=== PATIENT | male | born 1955 | race American Indian/Alaskan Native ===

== ENCOUNTER 2020-10-18 05:40 | Inpatient (IN) | payer MEDICARE, OTHER ==
[2020-10-18 07:34] LABS: BASO % 0.9 % (0-2.0); EOS % 0.1 % (0-4.5); HEMATOCRIT 31.5 % (35.4-49); HEMOGLOBIN 10.2 GM/dL (11.7-16.9); LYMPH % 20.5 % (8-40); MCH 26.7 pg (25.7-33.7); MCHC 32.6 g/dl (32.0-35.9); MEAN CELL VOLUME 81.9 fl (80-96); MEAN PLT VOLUME 8.1 fl (7.5-11.1); MONO % 22.9 % (3.8-10.2); NEUT % 55.6 % (42.8-82.8); PLATELET COUNT 70 10^3/uL (134-434); RBC 3.84 M/mm3 (4.00-5.60); RDW 14.3 % (11.9-15.9); WHITE BLOOD COUNT 4.7 K/mm3 (4.0-10.0)
[2020-10-18 07:42] LABS: INR 1.24 (0.83-1.09); PROTHROMBIN TIME (PATIENT) 15.1 SEC (9.7-13.0)
[2020-10-18 07:50] LABS: CHLORIDE 103 mmol/L (98-107); SODIUM 133 mmol/L (136-145)
[2020-10-18 07:52] LABS: ALBUMIN 3.3 g/dl (3.4-5.0); ANION GAP 7 MMOL/L (8-16); BLOOD UREA NITROGEN 13.8 mg/dL (7-18); CALCIUM 8.2 mg/dL (8.5-10.1); CO2 23 mmol/L (21-32)
[2020-10-18 07:53] LABS: GLUCOSE,RANDOM 130 mg/dL (74-106)
[2020-10-18 07:56] LABS: CREATININE 1.3 mg/dL (0.55-1.3); SGPT/ALT 47 U/L (13-61)
[2020-10-18 07:57] LABS: BILIRUBIN,TOTAL 1.2 mg/dL (0.2-1); TOT PROT 7.3 g/dl (6.4-8.2)
[2020-10-18 07:58] LABS: ALK PHOS 89 U/L (45-117)
[2020-10-18 08:07] LABS: SGOT/AST 37 U/L (15-37)
[2020-10-18 08:31] LABS: VENOUS BASE EXCESS -0.4 mmol/L (-2-2); VENOUS O2 SATURATION 47.5 % (70-80); VENOUS PH 7.348 (7.310-7.410)
[2020-10-18] MEDS ORDERED: ACETAMINOPHEN 500 MG TABLET (FP) PO ONE (09:08)
[2020-10-18] MEDS ORDERED: ACETAMINOPHEN 325 MG TABLET (FP) ONE (09:32)
[2020-10-18 10:27] LABS: URINE APPEARANCE CLEAR; URINE COLOR YELLOW; URINE GLUCOSE (UA) NEGATIVE (NEGATIVE)
[2020-10-18 10:28] LABS: PH,URINE 6.5 (5.0-8.0); URINE BILIRUBIN NEGATIVE (NEGATIVE); URINE KETONE NEGATIVE (NEGATIVE); URINE LEUK ESTERASE NEGATIVE (NEGATIVE); URINE NITRITE NEGATIVE (NEGATIVE); URINE PROTEIN 1+ (NEGATIVE); URINE UROBILINOGEN 0.2 mg/dL (0.2-1.0)
[2020-10-18 10:42] LABS: ANISOCYTOSIS 0; MACROCYTOSIS 0; PLATELET ESTIMATE DECREASED
[2020-10-18] MEDS ORDERED: DOXYCYCLINE HYCLATE 100 MG VIAL ONE ×2 (10:48→20:42)
[2020-10-18] MEDS: DOXYCYCLINE INJECTION 100 MG in DEXTROSE 5%-WATER 100 ML IVPB SCH ×2 (11:05→21:03)
[2020-10-18] MEDS ORDERED: AZITHROMYCIN IVPB 500 MG/250 ML BAG IVPB ONE (11:45)
[2020-10-18] MEDS: AZITHROMYCIN IVPB 500 MG/250 ML BAG IVPB SCH (12:15)
[2020-10-18] MEDS: ATOVAQUONE 750 MG/5 ML (UNIT-DOSE PACKAGING) PO SCH ×2 (13:28→16:45)
[2020-10-18 13:45] VITALS: BMI 23.4
[2020-10-18] MEDS: SODIUM CHLORIDE 0.45%/POT 20 MEQ/1,000 ML INFUS.BAG IV SCH (16:00)
[2020-10-18] MEDS: ACETAMINOPHEN 325 MG TABLET (FP) PO PRN ×2 (17:56→22:15)
[2020-10-18] MEDS ORDERED: DEXTROSE 5%-WATER 100 ML IVPB ONE (20:42)
[2020-10-18] MEDS ORDERED: PT OWN MED DRAWER 7, Y5N ONE (20:43)
[2020-10-18] MEDS: ATORVASTATIN CA 20 MG TABLET (FP) PO SCH (21:03)
[2020-10-19] MEDS ORDERED: INSULIN (NOVOLOG) ASPART 100 UNITS/ML 10ML VIAL ONE (05:05)
[2020-10-19] MEDS: SODIUM CHLORIDE 0.45%/POT 20 MEQ/1,000 ML INFUS.BAG IV SCH ×2 (05:13→18:46)
[2020-10-19] MEDS: LEVOTHYROXINE NA 25 MCG TABLET (FP) PO SCH (06:01)
[2020-10-19] MEDS ORDERED: PT OWN MED DRAWER 7, Y5N ONE ×2 (07:38→18:00)
[2020-10-19] MEDS: ATOVAQUONE 750 MG/5 ML (UNIT-DOSE PACKAGING) PO SCH ×2 (07:46→18:02)
[2020-10-19 09:23] LABS: BASO % 0.3 % (0-2.0); EOS % 0.4 % (0-4.5); HEMATOCRIT 28.1 % (35.4-49); HEMOGLOBIN 9.4 GM/dL (11.7-16.9); LYMPH % 22.2 % (8-40); MCHC 33.7 g/dl (32.0-35.9); MEAN CELL VOLUME 80.3 fl (80-96); MEAN PLT VOLUME 7.7 fl (7.5-11.1); MONO % 28.9 % (3.8-10.2); NEUT % 48.2 % (42.8-82.8); PLATELET COUNT 58 10^3/uL (134-434); RBC 3.49 M/mm3 (4.00-5.60); RDW 14.1 % (11.9-15.9); WHITE BLOOD COUNT 3.9 K/mm3 (4.0-10.0)
[2020-10-19 09:25] LABS: RETICULOCYTES 1.47 % (0.5-1.5)
[2020-10-19 09:39] LABS: BLOOD UREA NITROGEN 11.7 mg/dL (7-18)
[2020-10-19 09:42] LABS: CREATININE 1.2 mg/dL (0.55-1.3)
[2020-10-19 09:43] LABS: BILIRUBIN,TOTAL 1.1 mg/dL (0.2-1); TOT PROT 6.8 g/dl (6.4-8.2)
[2020-10-19] MEDS ORDERED: DOXYCYCLINE HYCLATE 100 MG VIAL ONE ×2 (09:52→20:41)
[2020-10-19] MEDS ORDERED: DEXTROSE 5%-WATER 100 ML IVPB ONE ×2 (09:52→20:41)
[2020-10-19] MEDS: DOXYCYCLINE INJECTION 100 MG in DEXTROSE 5%-WATER 100 ML IVPB SCH ×2 (09:58→22:18)
[2020-10-19] MEDS: FOLIC ACID 1 MG TABLET (FP) PO SCH (09:59)
[2020-10-19] MEDS: TAMSULOSIN HCL 0.4 MG CAP PO SCH (09:59)
[2020-10-19] MEDS: AZITHROMYCIN IVPB 500 MG/250 ML BAG IVPB SCH (10:57)
[2020-10-19 10:59] LABS: ANISOCYTOSIS 0; MACROCYTOSIS 0; PLATELET ESTIMATE DECREASED
[2020-10-19] MEDS: ATORVASTATIN CA 20 MG TABLET (FP) PO SCH (22:18)
[2020-10-19] MEDS: ACETAMINOPHEN 325 MG TABLET (FP) PO PRN (22:18)
[2020-10-20] MEDS: LEVOTHYROXINE NA 25 MCG TABLET (FP) PO SCH (06:00)
[2020-10-20] MEDS ORDERED: PT OWN MED DRAWER 7, Y5N ONE ×3 (08:02→16:18)
[2020-10-20 08:03] LABS: HEMATOCRIT 31.4 % (35.4-49); HEMOGLOBIN 10.2 GM/dL (11.7-16.9); MCH 26.5 pg (25.7-33.7); MCHC 32.4 g/dl (32.0-35.9); MEAN CELL VOLUME 81.7 fl (80-96); MEAN PLT VOLUME 8.1 fl (7.5-11.1); PLATELET COUNT 77 10^3/uL (134-434); RBC 3.84 M/mm3 (4.00-5.60); RDW 14.5 % (11.9-15.9); WHITE BLOOD COUNT 4.4 K/mm3 (4.0-10.0)
[2020-10-20] MEDS: TAMSULOSIN HCL 0.4 MG CAP PO SCH (08:24)
[2020-10-20] MEDS: ATOVAQUONE 750 MG/5 ML (UNIT-DOSE PACKAGING) PO SCH (08:24)
[2020-10-20 08:27] LABS: CALCIUM 8.3 mg/dL (8.5-10.1)
[2020-10-20 08:28] LABS: ALBUMIN 3.3 g/dl (3.4-5.0); BLOOD UREA NITROGEN 12.4 mg/dL (7-18)
[2020-10-20 08:31] LABS: CREATININE 1.3 mg/dL (0.55-1.3)
[2020-10-20 08:32] LABS: BILIRUBIN,TOTAL 1.1 mg/dL (0.2-1); TOT PROT 7.6 g/dl (6.4-8.2)
[2020-10-20] MEDS ORDERED: DEXTROSE 5%-WATER 100 ML IVPB ONE (10:13)
[2020-10-20] MEDS ORDERED: DOXYCYCLINE HYCLATE 100 MG VIAL ONE (10:13)
[2020-10-20] MEDS: DOXYCYCLINE INJECTION 100 MG in DEXTROSE 5%-WATER 100 ML IVPB SCH (10:24)
[2020-10-20] MEDS: FOLIC ACID 1 MG TABLET (FP) PO SCH (10:30)
[2020-10-20] MEDS: AZITHROMYCIN IVPB 500 MG/250 ML BAG IVPB SCH (11:37)
[2020-10-20 14:08] VITALS: BP 112/79; PULSE 74; TEMP 98.8
[2020-10-21 16:08] LABS: WEST NILE VIRUS AB SERUM,IGM Negative (Negative)
[2020-10-25 17:07] LABS: BABESIA MICROTI ANTIBODY IGM <1:10 (Neg:<1:10)
== END 2020-10-20 15:35 | disposition home or self-care (01) | DRG 869 ==
LOC: JER 05:40 → JERBED 09:27 → J8W 13:14
PROVIDERS: ADMIT Internal Medicine; ATTEND Internal Medicine
DX: B60.00 Babesiosis, unspecified (principal); D69.6 Thrombocytopenia, unspecified; E78.5 Hyperlipidemia, unspecified; N40.0 Benign prostatic hyperplasia without lower urinary tract symptoms; E03.9 Hypothyroidism, unspecified; R50.9 Fever, unspecified
CPT/HCPCS: 36415; 71045-TC-FY; 80053; 81003; 82803; 82930; 83605; 83615; 84484; 85025; 85027; 85045; 85610; 85730; 86618; 86666; 86753; 86788; 86789; 87040; 87086; 87207; 87798; 87804; 93005; 93010; 99285-25; C9803; J3480; U0003; U0005

== ENCOUNTER 2021-08-11 04:40 | Day surgery (SDC) | payer MEDICARE ==
[2021-08-06 14:40] VITALS: BMI 24.5
[2021-08-11 07:32] VITALS: TEMP 97.7
[2021-08-11 09:23] VITALS: BP 127/63; PULSE 48
== END 2021-08-11 10:02 | disposition home or self-care (01) ==
LOC: JASU-ENDO 04:40
PROVIDERS: ATTEND Internal Medicine Gastroenterology
PROC: 0DJD8ZZ Inspection of Lower Intestinal Tract, Via Natural or Artificial Opening Endoscopic (ICD-10-PCS; principal; 2021-08-11 08:00)
DX: Z12.11 Encounter for screening for malignant neoplasm of colon (principal); K64.8 Other hemorrhoids

== ENCOUNTER 2022-08-01 10:09 | Emergency (ER) | payer MEDICARE ==
[2022-08-01 10:22] VITALS: BMI 23.6
[2022-08-01] MEDS ORDERED: ACETAMINOPHEN 500 MG TABLET (FP) PO ONE (10:50)
[2022-08-01] MEDS ORDERED: LIDOCAINE 5% TOPICAL PATCH TP ONE (10:50)
[2022-08-01] MEDS ORDERED: ACETAMINOPHEN 500 MG TABLET (FP) ONE (11:16)
[2022-08-01] MEDS ORDERED: LIDOCAINE 5% TOPICAL PATCH ONE (11:16)
[2022-08-01 11:35] LABS: PH,URINE 6.5 (5.0-8.0); URINE APPEARANCE CLOUDY; URINE BILIRUBIN NEGATIVE (NEGATIVE); URINE COLOR YELLOW; URINE GLUCOSE (UA) NEGATIVE (NEGATIVE); URINE KETONE NEGATIVE (NEGATIVE); URINE LEUK ESTERASE NEGATIVE (NEGATIVE); URINE NITRITE NEGATIVE (NEGATIVE); URINE PROTEIN NEGATIVE (NEGATIVE); URINE UROBILINOGEN 0.2 mg/dL (0.2-1.0)
[2022-08-01 13:31] LABS: HEMATOCRIT 34.7 % (35.4-49); HEMOGLOBIN 11.6 GM/dL (11.7-16.9); MCH 26.9 pg (25.7-33.7); MCHC 33.4 g/dl (32.0-35.9); MEAN CELL VOLUME 80.5 fl (80-96); MEAN PLT VOLUME 7.3 fl (7.5-11.1); PLATELET COUNT 254 10^3/uL (134-434); RBC 4.31 M/mm3 (4.00-5.60); RDW 13.2 % (11.9-15.9); WHITE BLOOD COUNT 9.2 K/mm3 (4.0-10.0)
[2022-08-01 13:59] LABS: POTASSIUM 4.4 mmol/L (3.5-5.1)
[2022-08-01 14:01] LABS: ALBUMIN 3.4 g/dl (3.4-5.0); BLOOD UREA NITROGEN 11.3 mg/dL (7-18); CALCIUM 9.2 mg/dL (8.5-10.1)
[2022-08-01 14:04] LABS: CREATININE 1.2 mg/dL (0.55-1.3)
[2022-08-01 14:06] LABS: BILIRUBIN,TOTAL 0.4 mg/dL (0.2-1)
[2022-08-01 14:57] VITALS: BP 106/65; PULSE 75; RESP 20; TEMP 97.2
[2022-08-01] MEDS ORDERED: LIDOCAINE PATCH REMOVAL MC ONE (22:00)
== END 2022-08-01 15:30 | disposition home or self-care (01) ==
LOC: JER 10:09
DX: M54.50 Low back pain, unspecified (principal); G89.29 Other chronic pain
CPT/HCPCS: 36415; 74176-TC; 80053; 81003; 85027; 87086; 99284-25

== ENCOUNTER 2022-11-17 04:17 | Day surgery (SDC) | payer MEDICARE, OTHER ==
[2022-11-13 17:24] VITALS: BMI 23.6
[~2022-11-17 04:17] MED LIST: ACETAMINOPHEN 500 MG TABLET (FP) PO ONE
[2022-11-17] MEDS ORDERED: LIDOCAINE HCL/PF 1% SDV 5ML VIAL ONE (07:35)
[2022-11-17 09:56] VITALS: RESP 18
[2022-11-17] MEDS ORDERED: LIDOCAINE 1% P/F 10 MG/ML VIAL INF ONE (11:33)
[2022-11-17] MEDS ORDERED: BUPIVACAINE HCL/PF 0.75% 10 ML VIAL NR ONE (11:34)
[2022-11-17 14:38] VITALS: TEMP 97.8
[2022-11-17 14:40] VITALS: BP 120/71; PULSE 60
== END 2022-11-17 12:25 | disposition home or self-care (01) ==
LOC: JASU-SURG 04:17
PROVIDERS: ATTEND Pain Medicine Pain Medicine
PROC: 3E0T33Z Introduction of Anti-inflammatory into Peripheral Nerves and Plexi, Percutaneous Approach (ICD-10-PCS; 2022-11-17)
PROC: 3E0T3BZ Introduction of Anesthetic Agent into Peripheral Nerves and Plexi, Percutaneous Approach (ICD-10-PCS; principal; 2022-11-17 11:30)
DX: M47.816 Spondylosis without myelopathy or radiculopathy, lumbar region (principal)
CPT/HCPCS: 76000-TC-FY

== ENCOUNTER 2022-12-15 04:50 | Day surgery (SDC) | payer MEDICARE, OTHER ==
[2022-12-14 17:12] VITALS: BMI 23.6
[~2022-12-15 04:50] MED LIST changes: -ACETAMINOPHEN 500 MG TABLET (FP) PO ONE; +BUPIVACAINE HCL/PF 0.75% 10 ML VIAL MM ONE; +BUPIVACAINE HCL/PF 0.75% 10 ML VIAL NR ONE; +LIDOCAINE HCL 1% PRESERVATIVE FREE - 30ML VIAL IJ ONE
[2022-12-15 10:35] VITALS: RESP 18; TEMP 97.7
[2022-12-15] MEDS ORDERED: LIDOCAINE HCL 1% PRESERVATIVE FREE - 30ML VIAL IJ ONE (11:04)
[2022-12-15] MEDS ORDERED: BUPIVACAINE HCL/PF 0.75% 10 ML VIAL NR ONE (11:04)
[2022-12-15 12:53] VITALS: BP 116/68; PULSE 65
== END 2022-12-15 11:40 | disposition home or self-care (01) ==
LOC: JASU-SURG 04:50
PROVIDERS: ATTEND Pain Medicine Pain Medicine
PROC: 3E0T33Z Introduction of Anti-inflammatory into Peripheral Nerves and Plexi, Percutaneous Approach (ICD-10-PCS; 2022-12-15)
PROC: 3E0T3BZ Introduction of Anesthetic Agent into Peripheral Nerves and Plexi, Percutaneous Approach (ICD-10-PCS; principal; 2022-12-15 12:15)
DX: M47.816 Spondylosis without myelopathy or radiculopathy, lumbar region (principal)
CPT/HCPCS: 76000-TC-FY

== ENCOUNTER 2023-01-15 04:13 | Day surgery (SDC) | payer MEDICARE, OTHER ==
[2023-01-08 17:38] VITALS: BMI 23.3
[~2023-01-15 04:13] MED LIST changes: -BUPIVACAINE HCL/PF 0.75% 10 ML VIAL MM ONE; +DEXAMETHASONE SOD PHOSPHATE 10 MG/1 ML VIAL IM ONE; -LIDOCAINE HCL 1% PRESERVATIVE FREE - 30ML VIAL IJ ONE
[2023-01-15] MEDS ORDERED: LIDOCAINE HCL/PF 2% SDV 5ML VIAL ONE (07:22)
[2023-01-15] MEDS ORDERED: BUPIVACAINE HCL/PF 0.75% 10 ML VIAL ONE (07:24)
[2023-01-15] MEDS ORDERED: DEXAMETHASONE SOD PHOSPHATE 10 MG/1 ML VIAL ONE (07:24)
[2023-01-15] MEDS ORDERED: LIDOCAINE HCL/PF 1% SDV 5ML VIAL ONE (07:24)
[2023-01-15 11:07] VITALS: RESP 20; TEMP 97.7
[2023-01-15] MEDS ORDERED: ACETAMINOPHEN 500 MG TABLET (FP) PO PRN (12:48)
[2023-01-15] MEDS ORDERED: LIDOCAINE HCL 1% PRESERVATIVE FREE - 30ML VIAL IJ ONE (12:54)
[2023-01-15] MEDS ORDERED: LIDOCAINE HCL/PF 2% SDV 5ML VIAL INF ONE (13:13)
[2023-01-15] MEDS ORDERED: DEXAMETHASONE SOD PHOSPHATE 10 MG/1 ML VIAL IM ONE (13:31)
[2023-01-15] MEDS ORDERED: BUPIVACAINE HCL/PF 0.75% 10 ML VIAL NR ONE (13:31)
[2023-01-15 15:20] VITALS: BP 125/60; PULSE 58
== END 2023-01-15 14:45 | disposition home or self-care (01) ==
LOC: JASU-SURG 04:13
PROVIDERS: ATTEND Pain Medicine Pain Medicine
PROC: 015B3ZZ Destruction of Lumbar Nerve, Percutaneous Approach (ICD-10-PCS; principal; 2023-01-15 12:45)
DX: M47.816 Spondylosis without myelopathy or radiculopathy, lumbar region (principal)
CPT/HCPCS: 76000-TC-FY; J1100

== ENCOUNTER 2023-09-09 04:21 | Day surgery (SDC) | payer MEDICARE, OTHER ==
[2023-09-01 14:36] VITALS: BMI 23.6
[2023-09-09] MEDS ORDERED: ACETAMINOPHEN 500 MG TABLET (FP) PO PRN (09:05)
[2023-09-09 15:06] VITALS: RESP 18
[2023-09-09] MEDS: TRIAMCINOLONE ACETONIDE 40 MG/ML 10 ML VIAL IJ ONE (16:06)
[2023-09-09] MEDS: LIDOCAINE HCL 1%, 10 MG/ML (50 mL VIAL) INF ONE (16:07)
[2023-09-09] MEDS: IOHEXOL 180 MG/1 ML ML IJ ONE (16:07)
[2023-09-09] MEDS: BUPIVACAINE HCL/PF 0.5% (5 MG/ML) 30 ML VIAL IJ ONE (16:08)
[2023-09-09 16:42] VITALS: BP 124/70; PULSE 60; TEMP 98
== END 2023-09-09 16:44 | disposition home or self-care (01) ==
LOC: JASU-SURG 04:21
PROVIDERS: ATTEND Pain Medicine Pain Medicine
PROC: 3E0U3BZ Introduction of Anesthetic Agent into Joints, Percutaneous Approach (ICD-10-PCS; 2023-09-09)
PROC: 3E0U33Z Introduction of Anti-inflammatory into Joints, Percutaneous Approach (ICD-10-PCS; principal; 2023-09-09 17:00)
DX: M53.3 Sacrococcygeal disorders, not elsewhere classified (principal)
CPT/HCPCS: 76000-TC-FY

== ENCOUNTER 2023-10-28 06:29 | Day surgery (SDC) | payer MEDICARE ==
[2023-10-26 10:18] VITALS: BMI 24.5
[2023-10-28] MEDS ORDERED: BUPIVACAINE HCL/PF 0.75% 10 ML VIAL ONE (07:15)
[2023-10-28] MEDS ORDERED: LIDOCAINE HCL/PF 2% SDV 5ML VIAL ONE (07:15)
[2023-10-28] MEDS ORDERED: LIDOCAINE HCL/PF 1% SDV 5ML VIAL ONE (07:15)
[2023-10-28] MEDS ORDERED: ACETAMINOPHEN 500 MG TABLET (FP) PO PRN (10:42)
[2023-10-28] MEDS ORDERED: PROPOFOL 20 ML ONE (13:03)
[2023-10-28] MEDS ORDERED: MIDAZOLAM HCL 2 MG/2 ML SINGLE DOSE VIAL ONE ×2 (13:03→13:45)
[2023-10-28] MEDS: LIDOCAINE 1% P/F 10 MG/ML VIAL PNB ONE (13:34)
[2023-10-28] MEDS: LIDOCAINE HCL/PF 2% SDV 5ML VIAL PNB ONE (13:34)
[2023-10-28] MEDS ORDERED: ONDANSETRON 4 MG/2 ML VIAL ONE (16:39)
[2023-10-28] MEDS: ONDANSETRON 4 MG/2 ML VIAL IVPUSH PRN (16:40)
[2023-10-28] MEDS: PROMETHAZINE HCL 25 MG/1 ML VIAL IVPB PRN (16:55)
[2023-10-28] MEDS ORDERED: PROMETHAZINE HCL 25 MG/1 ML VIAL ONE (17:05)
[2023-10-28] MEDS: LACTATED RINGERS SOLUTION 1,000 ML IV SCH (17:17)
[2023-10-28] MEDS ORDERED: FAMOTIDINE 20 MG/50 ML IVPB 20 MG/50 ML MG IVPB ONE (17:42)
[2023-10-28] MEDS ORDERED: FAMOTIDINE 20 MG TABLET PO ONE ×2 (17:55→19:02)
[2023-10-28] MEDS: FAMOTIDINE 20 MG/50 ML IVPB 20 MG/50 ML MG IVPB ONE (17:58)
[2023-10-28 19:21] VITALS: TEMP 96
[2023-10-28 19:50] VITALS: BP 160/73; PULSE 53; RESP 20
== END 2023-10-28 19:50 | disposition home or self-care (01) ==
LOC: JASU-SURG 06:29
PROVIDERS: ATTEND Pain Medicine Pain Medicine
PROC: 015B3ZZ Destruction of Lumbar Nerve, Percutaneous Approach (ICD-10-PCS; principal; 2023-10-28 12:00)
DX: M54.51 Vertebrogenic low back pain (principal)
CPT/HCPCS: 64628; 64629; C2618; 76000-TC-FY; 94760

== ENCOUNTER 2023-12-24 04:30 | Day surgery (SDC) | payer MEDICARE ==
[2023-12-23 10:01] VITALS: BMI 22.1
[2023-12-24] MEDS ORDERED: BUPIVACAINE HCL/PF 0.75% 10 ML VIAL ONE (07:15)
[2023-12-24] MEDS ORDERED: LIDOCAINE HCL/PF 2% SDV 5ML VIAL ONE (07:15)
[2023-12-24] MEDS ORDERED: LIDOCAINE HCL/PF 1% SDV 5ML VIAL ONE (07:16)
[2023-12-24] MEDS ORDERED: DEXAMETHASONE SOD PHOSPHATE 10 MG/1 ML VIAL ONE (07:16)
[2023-12-24] MEDS: BUPIVACAINE HCL/PF 0.75% 10 ML VIAL NR ONE (08:56)
[2023-12-24] MEDS: LIDOCAINE HCL/PF 2% SDV 5ML VIAL INF ONE (08:56)
[2023-12-24] MEDS: LIDOCAINE HCL 1% PRESERVATIVE FREE - 30ML VIAL IJ ONE (08:56)
[2023-12-24] MEDS: DEXAMETHASONE SOD PHOSPHATE 10 MG/1 ML VIAL IVPUSH ONE (08:56)
[2023-12-24] MEDS ORDERED: ACETAMINOPHEN 500 MG TABLET (FP) PO PRN (09:18)
[2023-12-24 09:37] VITALS: BP 129/86; PULSE 66; RESP 16; TEMP 97.2
== END 2023-12-24 09:50 | disposition home or self-care (01) ==
LOC: JASU-SURG 04:30
PROVIDERS: ATTEND Pain Medicine Pain Medicine
PROC: 015B3ZZ Destruction of Lumbar Nerve, Percutaneous Approach (ICD-10-PCS; principal; 2023-12-24 08:45)
DX: M47.816 Spondylosis without myelopathy or radiculopathy, lumbar region (principal)
CPT/HCPCS: 76000-TC-FY; J1100

== ENCOUNTER 2024-01-27 04:38 | Day surgery (SDC) | payer MEDICARE ==
[2024-01-25 10:49] VITALS: BMI 23.6
[2024-01-27] MEDS ORDERED: ACETAMINOPHEN 500 MG TABLET (FP) PO PRN (08:49)
[2024-01-27] MEDS: LIDOCAINE HCL/PF 2% SDV 5ML VIAL INF ONE ×3 (13:09)
[2024-01-27] MEDS: LIDOCAINE HCL 1% PRESERVATIVE FREE - 30ML VIAL IJ ONE ×3 (13:09)
[2024-01-27] MEDS: DEXAMETHASONE SOD PHOSPHATE 10 MG/1 ML VIAL IVPUSH ONE ×2 (13:10)
[2024-01-27] MEDS: BUPIVACAINE HCL/PF 0.75% 10 ML VIAL NR ONE ×2 (13:26)
[2024-01-27 14:46] VITALS: BP 136/67; PULSE 60; RESP 18; TEMP 97.8
[2024-01-28] MEDS ORDERED: ACETAMINOPHEN 500 MG TABLET (FP) PO PRN (08:26)
== END 2024-01-27 13:50 | disposition home or self-care (01) ==
LOC: JASU-SURG 04:38
PROVIDERS: ATTEND Pain Medicine Pain Medicine
PROC: 015B3ZZ Destruction of Lumbar Nerve, Percutaneous Approach (ICD-10-PCS; principal; 2024-01-27 12:30)
DX: M47.816 Spondylosis without myelopathy or radiculopathy, lumbar region (principal)
CPT/HCPCS: 76000-TC-FY; J1100

== ENCOUNTER 2024-03-17 04:30 | Day surgery (SDC) | payer MEDICARE, OTHER ==
[2024-02-24 09:40] VITALS: BMI 24.3
[2024-03-17] MEDS ORDERED: LIDOCAINE HCL/PF 1% SDV 5ML VIAL ONE (07:40)
[2024-03-17] MEDS ORDERED: BUPIVACAINE HCL/PF 0.5% (5MG/ML) 10 ML VIAL ONE (07:40)
[2024-03-17 09:49] VITALS: BP 122/72; PULSE 52; RESP 18; TEMP 97.1
[2024-03-17] MEDS ORDERED: ACETAMINOPHEN 500 MG TABLET (FP) PO PRN (12:49)
== END 2024-03-17 10:15 | disposition home or self-care (01) ==
LOC: JASU-SURG 04:30
PROVIDERS: ATTEND Pain Medicine Pain Medicine
PROC: 3E0U3BZ Introduction of Anesthetic Agent into Joints, Percutaneous Approach (ICD-10-PCS; 2024-03-17)
PROC: 3E0U33Z Introduction of Anti-inflammatory into Joints, Percutaneous Approach (ICD-10-PCS; principal; 2024-03-17 09:17)
DX: M53.3 Sacrococcygeal disorders, not elsewhere classified (principal)
CPT/HCPCS: 76000-TC-FY